=== PATIENT | female | born 1975 | race Caucasian/White ===

== ENCOUNTER 2016-07-24 22:05 | Emergency (ER) | payer OTHER ==
[~2016-07-24 22:05] MED LIST: ALBUTEROL HFA INH; ALBUTEROL17 GM INH; ANEXSIA 5/325 M1 TA1 PO; B12 5,000 MCG1 EACH PO; BENZONATATE PO; DELTASONE20 MG PO; LEVAQUIN750 MG PO; MAGNESIUM27 MG PO; PHENERGAN; PHENERGAN DM PO; ZITHROMAX; ZITHROMAX PO
[2016-09-23] MEDS ORDERED: B6100 MG PO (10:39)
[2016-09-23] MEDS ORDERED: VITAMIN B-250 MG PO (10:40)
[2016-09-23] MEDS ORDERED: IBUPROFEN (21:59)
[2016-10-07] MEDS ORDERED: GABAPENTIN300 M2 PO (10:41)
[2016-11-05] MEDS ORDERED: GABAPENTIN300 MG PO (09:29)
[2016-11-05] MEDS ORDERED: ONDANSETRON ODT8 MG (09:30)
[2016-11-05] MEDS ORDERED: NAPROXEN SODIU550 MG PO (09:30)
[2016-11-05] MEDS ORDERED: RIZATRIPTAN10 M2 PO (09:32)
[2016-11-05] MEDS ORDERED: PANTOPRAZOLE SO40 MG PO (09:33)
[2016-11-05] MEDS ORDERED: VITAMIN B 2 (09:34)
[2016-11-05] MEDS ORDERED: MAGNESIUM250 M1 PO (09:35)
[2016-11-05] MEDS ORDERED: FLONASE ALLERG9.9 ML (09:36)
[2016-11-17] MEDS ORDERED: DEPO-PROVE150 MG/11 (07:24)
== END 2016-07-24 22:43 | disposition home or self-care (01) ==
LOC: SED 22:05
DX: H66.001 Acute suppurative otitis media without spontaneous rupture of ear drum, right ear (principal); R06.02 Shortness of breath; R05 Cough
CPT/HCPCS: 99283

== ENCOUNTER → 2016-09-23 | Outpatient (CLI) | payer OTHER ==
[~2016-09-23] MED LIST changes: +B6100 MG PO; +DEPO-PROVE150 MG/11; +FLONASE ALLERG9.9 ML; +GABAPENTIN300 M2 PO; +GABAPENTIN300 MG PO; +IBUPROFEN; +MAGNESIUM250 M1 PO; +NAPROXEN SODIU550 MG PO; +ONDANSETRON ODT8 MG; +PANTOPRAZOLE SO40 MG PO; +RIZATRIPTAN10 M2 PO; +VITAMIN B 2; +VITAMIN B-250 MG PO
== END | disposition home or self-care (01) ==
LOC: CSSDAY 10:18
DX: G43.909 Migraine, unspecified, not intractable, without status migrainosus (principal); Z79.899 Other long term (current) drug therapy
CPT/HCPCS: 96365; 96367; 96374; J1100; J3475

== ENCOUNTER → 2016-09-24 | Outpatient (CLI) | payer OTHER | END | disposition home or self-care (01) | LOC: CSSDAY 07:15 | DX: G43.909 Migraine, unspecified, not intractable, without status migrainosus (principal); Z79.899 Other long term (current) drug therapy | CPT/HCPCS: 96365; 96367; 96374; J1100; J3475 ==

== ENCOUNTER → 2016-09-27 | Outpatient (CLI) | payer OTHER | END | disposition home or self-care (01) | LOC: CSSDAY 09:30 | DX: G43.909 Migraine, unspecified, not intractable, without status migrainosus (principal) | CPT/HCPCS: 96365; 96367; 96374; 96375; J1100; J3475 ==

== ENCOUNTER → 2016-09-28 | Outpatient (CLI) | payer OTHER | END | disposition home or self-care (01) | LOC: CSSDAY 12:00 | DX: G43.909 Migraine, unspecified, not intractable, without status migrainosus (principal); Z79.899 Other long term (current) drug therapy | CPT/HCPCS: 96365; 96367; 96374; J1100; J3475 ==

== ENCOUNTER → 2016-09-29 | Outpatient (CLI) | payer OTHER | END | disposition home or self-care (01) | LOC: CSSDAY 09:00 | DX: G43.909 Migraine, unspecified, not intractable, without status migrainosus (principal) | CPT/HCPCS: 96365; 96367; 96374; J1100; J3475 ==

== ENCOUNTER → 2016-10-06 | Outpatient (CLI) | payer OTHER | END | disposition home or self-care (01) | LOC: CSSDAY 10:27 | DX: G43.909 Migraine, unspecified, not intractable, without status migrainosus (principal); Z79.899 Other long term (current) drug therapy | CPT/HCPCS: 96374; 96375; J1110; J2765 ==

== ENCOUNTER → 2016-10-07 | Outpatient (CLI) | payer OTHER | END | disposition home or self-care (01) | LOC: CSSDAY 10:27 | DX: G43.909 Migraine, unspecified, not intractable, without status migrainosus (principal); Z79.899 Other long term (current) drug therapy | CPT/HCPCS: 96374; 96375; J1110; J2765 ==

== ENCOUNTER → 2016-10-08 | Outpatient (CLI) | payer OTHER | END | disposition home or self-care (01) | LOC: CSSDAY 11:00 | DX: G43.909 Migraine, unspecified, not intractable, without status migrainosus (principal); Z79.899 Other long term (current) drug therapy | CPT/HCPCS: 96374; 96375; J1110; J2765 ==

== ENCOUNTER → 2016-10-12 | Outpatient (CLI) | payer OTHER | END | disposition home or self-care (01) | LOC: CSSDAY 10:00 | DX: G43.909 Migraine, unspecified, not intractable, without status migrainosus (principal) | CPT/HCPCS: 96374; 96375; J1110; J2765 ==

== ENCOUNTER → 2016-10-13 | Outpatient (CLI) | payer OTHER | END | disposition home or self-care (01) | LOC: CSSDAY 11:00 | DX: G43.909 Migraine, unspecified, not intractable, without status migrainosus (principal) | CPT/HCPCS: 96374; 96375; J1110; J2765 ==

== ENCOUNTER → 2016-10-18 | Outpatient (CLI) | payer OTHER | END | disposition home or self-care (01) | LOC: CLAB 11:31 | DX: E66.01 Morbid (severe) obesity due to excess calories (principal) | CPT/HCPCS: 36415; 84443; 86677 ==

== ENCOUNTER → 2016-10-21 | Outpatient (CLI) | payer OTHER | END | disposition home or self-care (01) | LOC: CBAR 08:50 | DX: Z01.818 Encounter for other preprocedural examination (principal); E66.01 Morbid (severe) obesity due to excess calories | CPT/HCPCS: G0463 ==

== ENCOUNTER → 2016-10-21 | Outpatient (CLI) | payer OTHER ==
--- NOTE | ~2016-10-21 | MR17 ---
[facility] A Service of [facility] RADIOLOGY TEXT RESULTS PATIENT: BALAJI SMITH LOCATION: [facility] : 77 UNIT #: [id number] AGE: [address]: JOCELINE CERVANTES APRN SEX: F ORDER DR: [id number] [place] [id number] O MR#: [id number] Acc #: [id number] NAME: BALAJI SMITH : 1975 SEX: F STUDY DATE/TIME: 10/21/2016 13:13 UNIT: [facility] ROOM: STUDY DESCRIPTION: MR Brain WWo Contrast Attending Physician: Joceline Cervantes Aprn Referring Physician: Joceline Cervantes Aprn Ordering Physician: Joceline Cervantes Aprn Primary Care Physician: Errol Dan M.D. MRI CENTER REPORT This report is preliminary unless electronic signature is present. EXAM Brain MR with and without contrast 10/21/2016 COMPARISON 09/11/2014. PROCEDURE Routine brain MR with and without contrast. CLINICAL HISTORY Migraine headaches since age 15 but 3-4 week history of almost constant headache with neck pain and bilateral hand and finger numbness and tingling paresthesias. FINDINGS The brain is structurally normal. There is no restricted diffusion. Brain parenchymal signal is normal. There is no hydrocephalus or extraaxial fluid collection. Postcontrast images show no mass or abnormal enhancement. Bone marrow signal is normal. The extracranial soft tissues are normal though there is some slight right frontal sinus mucosal thickening. IMPRESSION Minimal right frontal sinus mucosal thickening; otherwise, normal negative brain MR with and without contrast. No change since 09/11/2014. [facility] A Service of [facility] RADIOLOGY TEXT RESULTS PATIENT: BALAJI SMITH LOCATION: [facility] : 77 UNIT #: [id number] AGE: [address]: JOCELINE CERVANTES APRN SEX: F ORDER DR: Dictated by... Maximiliano Renteria M.D. THIS IS AN ELECTRONICALLY VERIFIED REPORT Maximiliano Renteria M.D. at 10/22/2016 2:13 PM TEV/lorris TD: 10/22/2016 09:24 JOB #: [id number] MRI CENTER REPORT Page 1 of 1
--- NOTE | ~2016-10-21 | MR31 ---
[facility] A Service of [facility] RADIOLOGY TEXT RESULTS PATIENT: BALAJI SMITH LOCATION: [facility] : 77 UNIT #: [id number] AGE: [address]: EKATERINA CERVANTES APRN SEX: F ORDER DR: [id number] [place] [id number] O MR#: [id number] Acc #: [id number] NAME: BALAJI SMITH : 1975 SEX: F STUDY DATE/TIME: 10/21/2016 13:37 UNIT: [facility] ROOM: STUDY DESCRIPTION: MR Cervical WWo Contrast Attending Physician: Ekaterina Cervantes Aprn Referring Physician: Ekaterina Cervantes Aprn Ordering Physician: Ekaterina Cervantes Aprn Primary Care Physician: Errol Dan M.D. MRI CENTER REPORT This report is preliminary unless electronic signature is present. EXAM Cervical spine MRI with and without contrast. DATE OF STUDY 10/21/2016 PROCEDURE Routine cervical spine MR with and without contrast. COMPARISON None CLINICAL HISTORY Chronic history of migraine-type headaches, more recent constant headache for 3-4 weeks with neck pain and bilateral hand and finger numbness and tingling for 3-4 weeks. FINDINGS There is a loss of lordosis but no katherine or retrolisthesis. Bone marrow signal is normal. Cord signal is normal. At 2-3, 3-4, and 4-5, the canal and foramina are normal. At 5-6, there is a broad disc bulge with canal stenosis and moderate cord compression. There is probably some element of disc and osteophyte complex and there is moderate to severe bilateral foraminal stenosis. At 6-7 and 7-1, the canal and foramina are normal. IMPRESSION Broad disc bulges/disc and osteophyte complex at C5-6 with canal stenosis, moderate cord compression, and moderate to severe bilateral foraminal stenosis. Otherwise, normal cervical spine MRI without contrast. No [facility] A Service of [facility] RADIOLOGY TEXT RESULTS PATIENT: BALAJI SMITH LOCATION: [facility] : 77 UNIT #: [id number] AGE: [address]: EKATERINA CERVANTES APRN SEX: F ORDER DR: abnormal cord signal. Dictated by... Maximiliano Renteria M.D. THIS IS AN ELECTRONICALLY VERIFIED REPORT Maximiliano Renteria M.D. at 10/22/2016 2:13 PM [place]/che TD: 10/22/2016 09:25 JOB #: [id number] MRI CENTER REPORT Page 1 of 1
== END | disposition home or self-care (01) ==
LOC: SMRI 10-19 14:30
DX: M54.2 Cervicalgia (principal); G43.909 Migraine, unspecified, not intractable, without status migrainosus; J34.89 Other specified disorders of nose and nasal sinuses; M50.822 Other cervical disc disorders at C5-C6 level; M25.78 Osteophyte, vertebrae; M48.02 Spinal stenosis, cervical region
CPT/HCPCS: 70553; 72156; A9581

== ENCOUNTER → 2016-11-05 | Outpatient (CLI) | payer OTHER ==
--- NOTE | ~2016-11-05 | EKG ---
PATIENT: BALAJI SMITH UNIT #: [id number] Ventricular Rate: 69 BPM Atrial Rate: 69 BPM P-R Interval: 158 ms QRS Duration: 72 ms Q-T Interval: 386 ms QTC Calculation(Bezet): 413 ms P Etna: -5 degrees Calculated R Etna: -12 degrees Diagnosis Line: Normal sinus rhythm Diagnosis Line: Low voltage QRS Diagnosis Line: Borderline ECG Diagnosis Line: When compared with ECG of 05-DEC-2014 22:57, Diagnosis Line: Nonspecific T wave abnormality now evident in Diagnosis Line: Anterior leads Diagnosis Line: Confirmed by ADALBERTO TINEO MD ([id number]) on Diagnosis Line: 11/06/2016 2:53:51 PM INTERPRETING MD: GUSTAVO
--- NOTE | ~2016-11-05 | CR97 ---
[facility] A Service of [facility] RADIOLOGY TEXT RESULTS PATIENT: BALAJI SMITH LOCATION: [facility] : 77 UNIT #: [id number] AGE: [address]: Jorge Wall MD SEX: F ORDER DR: [id number] [facility] [address] [place], [place] [address] [id number] O MR#: [id number] Acc #: [id number] NAME: BALAJI SMITH : 1975 SEX: F STUDY DATE/TIME: 11/05/2016 8:43 UNIT: [facility] ROOM: STUDY DESCRIPTION: CR Esophagram Attending Physician: Jorge Wall M.D. Ordering Physician: Jorge Wall M.D. Primary Care Physician: Errol Dan M.D. MEDICAL IMAGING REPORT This report is preliminary unless electronic signature is present EXAM Single contrast barium esophagram INDICTION Preoperative examination prior to laparoscopic gastric band surgery. TECHNIQUE Patient was administered thin barium and multiple fluoroscopic images were obtained. FINDINGS Thoracic esophagus is of normal caliber. There is no evidence of stricture or mass lesion. Esophageal motility is within normal limits. No reflux was seen. No hiatal hernia is identified. IMPRESSION Normal single contrast barium esophagram. Total fluoroscopy time was 0.5 minutes. Total of 13 fluoroscopic images were obtained. Dictated by... Fariba Stephenson M.D. THIS IS AN ELECTRONICALLY VERIFIED REPORT Fariba Stephenson M.D. at 11/08/2016 3:55 PM AFF/oscar TD: 11/08/2016 08:14 JOB #: [id number] MEDICAL IMAGING REPORT Page 1 of 1 COPY
--- NOTE | ~2016-11-05 | CR63 ---
[facility] A Service of [facility] & [facility] RADIOLOGY TEXT RESULTS PATIENT: BALAJI SMITH LOCATION: [facility] : 77 UNIT #: [id number] AGE: [address]: Jorge Wall MD SEX: F ORDER DR: [id number] [facility] [address] [place], [place] [address] [id number] O MR#: [id number] Acc #: [id number] NAME: BALAJI SMITH : 1975 SEX: F STUDY DATE/TIME: 11/05/2016 8:00 UNIT: [facility] ROOM: STUDY DESCRIPTION: CR Chest 2 View Attending Physician: Jorge Wall M.D. Ordering Physician: Jorge Wall M.D. Primary Care Physician: Errol Dan M.D. MEDICAL IMAGING REPORT This report is preliminary unless electronic signature is present EXAM Chest, 11/05/2016 HISTORY 41-year-old woman preop clearance laparoscopic adjustable gastric band placement. Possible paraesophageal hiatal hernia, short of air with activity. COMPARISON Chest, 09/24/2015 FINDINGS Two-view chest demonstrates mild cardiac enlargement. Hilar structures and mediastinal contours are normal. Bilateral lungs are expanded and clear. Large body habitus noted. IMPRESSION Mild cardiomegaly. Large body habitus. No acute chest finding. Dictated by... Darwin Durbin M.D. THIS IS AN ELECTRONICALLY VERIFIED REPORT Darwin Durbin M.D. at 11/05/2016 11:59 AM Emmy TD: 11/05/2016 11:35 JOB #: [id number] MEDICAL IMAGING REPORT Page 1 of 1 COPY
[2016-11-05 09:14] LABS: HEMATOCRIT 42.9 % (35.0-45.0); HEMOGLOBIN 14.2 gm/dL (12.0-16.0); MEAN CORPUSCULAR HEMOGLOBIN 29.2 PG (28-34); MEAN CORPUSCULAR HGB CONC 33.2 g/dL (30-36); MEAN PLATELET VOLUME 7.8 FL (6.5-11.5); RED BLOOD COUNT 4.88 X10e (3.90-5.30); WHITE BLOOD COUNT 10.8 X10e3 (4.0-10.5)
[2016-11-05 10:06] LABS: ALBUMIN SERUM 4.1 g/dL (3.5-5.0); BUN/CREATININE RATIO 17.5; CALCIUM SERUM 9.6 mg/dL (8.4-10.2); CREATININE SERUM 0.8 mg/dL (0.6-1.4); GLOM FILT RATE Estimated 92.3 mL/min (>60); POTASSIUM 4.5 mmol/L (3.5-5.1)
== END | disposition home or self-care (01) ==
LOC: CRAD 07:49 → CAMB 09:00
PROVIDERS: Surgery
DX: Z01.818 Encounter for other preprocedural examination (principal); I51.7 Cardiomegaly
CPT/HCPCS: 36415; 71020; 74220; 80053; 80061; 84443; 85027; 93005

== ENCOUNTER → 2016-11-17 | Day surgery (SDC) | payer OTHER ==
--- NOTE | ~2016-11-17 | CR7 ---
[facility] A Service of [facility] RADIOLOGY TEXT RESULTS PATIENT: BALAJI SMITH LOCATION: [facility] : 77 UNIT #: [id number] AGE: [address]: Jorge Wall MD SEX: F ORDER DR: [id number] [facility] [address] [place], [place] [address] [id number] O MR#: [id number] Acc #: [id number] NAME: BALAJI SMITH : 1975 SEX: F STUDY DATE/TIME: 11/17/2016 10:10 UNIT: [facility] ROOM: STUDY DESCRIPTION: CR Abdomen Single AP View Attending Physician: Jorge Wall M.D. Ordering Physician: Jorge Wall M.D. Primary Care Physician: Errol Dan M.D. MEDICAL IMAGING REPORT This report is preliminary unless electronic signature is present EXAM Abdomen one-view, 11/17/2016 10:10 hours HISTORY 41-year-old status post Lap-Band placement today. Abdominal pain. History of morbid obesity. COMPARISON Esophagram, 11/05/2016 FINDINGS Single supine view of the abdomen excludes the right flank and the pelvis. Patient is status post Lap-Band placement with band overlying the left T11 costovertebral articulation oriented at 50 degrees from vertical. Radiopaque tubing courses inferiorly to a port overlying the superior margin of the left iliac crest. The bowel gas pattern is unremarkable. IMPRESSION Postop Lap-Band placement with band overlying the left T11 costovertebral junction oriented at 50 degrees from vertical. Radiopaque tubing courses inferiorly to a port overlying the left superior sacroiliac joint region. Bowel gas pattern is unremarkable. Dictated by... Alisson Alonso M.D. THIS IS AN ELECTRONICALLY VERIFIED REPORT Alisson Alonso M.D. at 11/17/2016 4:57 PM Romie TD: 11/17/2016 14:51 JOB #: [id number] [facility] A Service of [facility] RADIOLOGY TEXT RESULTS PATIENT: BALAJI SMITH LOCATION: [facility] #: [id number] : 77 UNIT #: [id number] AGE: [address]: Jorge Wall MD SEX: F ORDER DR: MEDICAL IMAGING REPORT Page 1 of 1 COPY
--- NOTE | ~2016-11-17 | OR ---
Unit #: [id number] #: [id number] Patient: BALAJI SMITH [id number] [address] [address] [id number] O MR#: [id number] NAME: BALAJI SMITH ROOM: Date of Procedure: 11/17/2016 Admission Date: 11/17/2016 Surgeon: Jorge Wall M.D. : 1975 Attending Physician: Jorge Wall M.D. Primary Care Physician: Errol Dan M.D. OPERATIVE REPORT PREOPERATIVE DIAGNOSIS Chronic morbid obesity with BMI of 39. POSTOPERATIVE DIAGNOSES 1. Chronic morbid obesity with BMI of 39. 2. Paraesophageal hiatal hernia. PROCEDURES PERFORMED 1. Laparoscopic adjustable gastric band. 2. Laparoscopic paraesophageal hiatal hernia repair. ASSISTANT Baljinder Gale M.D. ANESTHESIA General anesthesia. ESTIMATED BLOOD LOSS Minimal. IV FLUIDS 800 crystalloid. COMPLICATIONS None. INDICATIONS FOR PROCEDURE The patient is a 41-year-old with chronic morbid obesity. DESCRIPTION OF PROCEDURE The patient was taken to the operating room and placed in supine position. General anesthesia was induced. The abdomen was prepped and draped. A 3-cm incision was then made left of the midline. A 10-mm Visiport was then placed intraabdominal under direct vision. The abdomen was insufflated to 15 mmHg with CO2. The patient was then placed in a steep reversed Trendelenburg. General inspection of the abdomen revealed what appeared to be a paraesophageal hernia. This was identified with a defect at the diaphragm using anterior palpation with the instrument. We then made a small incision in the subxiphoid region. A Sathya liver retractor was then placed intraabdominal and used to retract the left lobe of the liver upward to further expose the paraesophageal hernia and GE junction. I then placed a 5-mm port in the right upper quadrant, a 10-mm Unit #: [id number] #: [id number] Patient: BALAJI SMITH port in the left upper quadrant, and another 5-mm port in the left lower quadrant. The stomach was retracted medial and downward. Upon retracting the stomach, we took down the paraesophageal ligament, exposing the right and left gloria at the paraesophageal hernia. Any hernia sac was reduced. We then repaired the paraesophageal hernia using interrupted #0 Ethibond sutures in a [id number] type fashion. This formed a snug repair to the anterior esophagus. We then retracted the stomach medially and further exposed the angle of His using Bovie electrocautery. The stomach was then retracted laterally. We then took down the hepatogastric ligament with Bovie electrocautery. This exposed the right gloria. Using blunt dissection, I created a retrogastric tunnel from this point to the angle of His. The band was then placed intraabdominal through the 10-mm port site. This was then brought through the retrogastric tunnel in a pars flaccida technique. The band was then closed anteriorly to form a 20-mL to 25-mL anterior gastric pouch. The fundus was then secured to the anterior pouch to prevent movement around the stomach using two interrupted #0 Ethibond sutures. A third suture was then used as a gathering stitch from the lesser curve to the anterior stomach, gathering and imbricating the remaining fundus of the stomach. The tubing was then brought out through the midline 10-mm port site. All ports and the Sathya liver retractor were removed under direct vision with no evidence of abdominal hemorrhage. A polypropylene mesh was then secured to the posterior face of the laparoscopic band port. This was secured using #0 Ethibond suture. This was then cut to shape. The port was then connected to the tubing and placed into a subcutaneous pocket just anterior to the rectus sheath. Its position was then confirmed. All tubing was then placed intraabdominal. The wounds were then closed with interrupted 4-0 Vicryl. The patient tolerated the procedure well and was sent to the recovery room in good condition. Dictated by... Madonna Gomez/shraddha TD: 11/18/2016 11:07 JOB #: [id number] OPERATIVE REPORT Page 1 of 1 X Jorge Wall MD PROCEDURE OPERATIVE NOTE
== END | disposition home or self-care (01) ==
LOC: CSUR 06:41
DX: E66.01 Morbid (severe) obesity due to excess calories (principal); K44.9 Diaphragmatic hernia without obstruction or gangrene; K21.9 Gastro-esophageal reflux disease without esophagitis; G30.9 Alzheimer's disease, unspecified; G43.719 Chronic migraine without aura, intractable, without status migrainosus; F33.9 Major depressive disorder, recurrent, unspecified; G47.30 Sleep apnea, unspecified; Z68.39 Body mass index [BMI] 39.0-39.9, adult; Z72.4 Inappropriate diet and eating habits; Z87.891 Personal history of nicotine dependence; Z98.890 Other specified postprocedural states
CPT/HCPCS: 74000; 84703; C1781; J0330; J0690; J1650; J1885; J2405; J2550; J2710; J3010